=== PATIENT | female | born 1970 | race Caucasian/White ===

== ENCOUNTER 2017-07-06 05:35 | Inpatient (IN) | payer OTHER ==
[~2017-07-06] VITALS: Ht 170.2 cm; Wt 156.5 kg
--- NOTE | ~2017-07-06 | EKG ---
[address] [address] ELECTROCARDIOGRAM REPORT Name: SHERRIE VELAZQUEZ Parmjit Room #: 150-3 [facility]#: [id number] Admission: 07/06/17 Attend Phys: Don Dobson MD Discharge: Date of : 72 Report #: [id number] THIS REPORT FOR: //name// [facility] Test Date: 2017-07-06 Test Time: 06:44:54 Pat Name: SHERRIE VELAZQUEZ Department: Room: 150 3 Gender: F Material Carrier: ELIZABETH : 1970 Requested By: Dno Dobson Order Number: [id number] MD: Eliseo Vazquez Measurements Intervals [place] Rate: 67 P: 42 OK: 159 QRS: 42 QRSD: 157 T: 80 QT: 480 QTc: 507 Interpretive Statements Sinus rhythm Left bundle branch block Compared to ECG 11/10/2015 07:54:21 No significant changes Electronically Signed On 07-06-2017 9:06:23 STEVEDORING SUPERVISOR by Eliseo Vazquez [email or web address] <ELECTRONICALLY SIGNED> By: Eliseo Vazquez MD 07/06/1706 3 Eliseo Vazquez MD /MANJIT
--- NOTE | ~2017-07-06 | O ---
[facility] [place] [address] OPERATIVE REPORT Name: MARCUSSHERRIE Parmjit Room #: 408-P [facility] IN M.R.#: [id number] Admission: 07/06/17 Attend Phys: Don Dobson MD Discharge: Date of : 72 Report #: [id number] THIS REPORT FOR: //name// CC: Don TINOCORI EADOR DATE OF SERVICE: 07/06/2017 PREOPERATIVE DIAGNOSIS: Left knee prepatellar infected bursitis. POSTOPERATIVE DIAGNOSIS: Left knee prepatellar infected bursitis. PROCEDURE: Left knee prepatellar bursa irrigation and debridement. SURGEON: Don Dobson MD ANESTHESIA: General. ESTIMATED BLOOD LOSS: Minimal. ENGINE INSTALLER: Nory Moon. DRAINS: One Hemovac drain was placed. TOURNIQUET TIME: 10 minutes. DESCRIPTION OF PROCEDURE: The patient was brought to the operating room where she was placed under general anesthesia. Once under adequate general anesthesia, her left lower extremity was prepped and draped in a sterile manner. Extremity was elevated and tourniquet placed to 300 mmHg. An anterior incision over the prepatellar bursa was made approximately 4 cm in length in the bursal space and abundant thin purulent appearing fluid did come out of the bursa. Any fatty necrotic tissue was removed with suction as well as with irrigation. Cultures were taken prior to any short of irrigation. The wound was then irrigated copiously with normal saline solution and subsequently closed over a Hemovac drain with 2-0 nylon suture. The wound was dressed with Xeroform, 4 x 4s, and a sterile soft compressive dressing was placed. Tourniquet was let down at 10 minutes. Toes were pink and warm with good capillary refill. There were no complications from the procedure. The patient tolerated the procedure well and went to the recovery room without incident. <ELECTRONICALLY SIGNED> By: Don Dobson MD 07/09/17 0814 0823 0837 Don Dobson MD /nt
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
[~2017-07-06 05:35] MED LIST: AMBIEN 10 MG TA10 MG PO; BLACK COHOSH200 MG PO; BUSPIRONE HCL5 MG PO; DICLOFENAC SODI75 MG PO; EFFEXOR XR150 MG PO; FAMCICLOVIR250 MG PO; HYDROCHLOROTHIA25 M1 PO; LYRICA 75 MG CA75 MG PO; PERCOCET 7.5-31 EACH PO; POTASSIUM CL 225 MEQ PO; PRAVACHOL40 MG PO; PRILOSEC 20 MG20 MG PO; RANITIDINE HCL300 M1 PO; TOPROL XL100 MG PO; VASOTEC10 MG PO; VITAMIN D 5050000 I1 PO
[2017-07-06 07:25] LABS: HEMATOCRIT 33.3 % (37.0-47.0); HEMOGLOBIN 10.5 gm/dL (12.0-15.0)
[2017-07-06 07:35] LABS: CALCIUM 9.1 mg/dL (8.5-10.1); CREATININE 1.6 mg/dL (0.6-1.0); POTASSIUM 4.5 mmol/L (3.5-5.1)
[2017-07-06 07:52] VITALS: BP 142/84
[2017-07-06] MEDS ORDERED: ALLOPURINOL 10100 M1 PO (09:54)
[2017-07-06] MEDS ORDERED: METFORMIN HCL500 MG PO (09:55)
[2017-07-06] MEDS ORDERED: PROZAC20 MG PO (09:56)
[2017-07-06] MEDS ORDERED: REQUIP 1 MG TABL1 M1 PO (09:57)
[2017-07-06] MEDS ORDERED: HYDROXYZINE PAM25 M1 PO (09:58)
[2017-07-06] MEDS ORDERED: PERCOCET 7.5-31 EACH PO (10:01)
[2017-07-06 21:05] VITALS: BP 119/48
[2017-07-07 01:43] VITALS: BP 137/63
[2017-07-07 05:16] VITALS: BP 106/49
[2017-07-07 06:06] LABS: ABSOLUTE NEUTROPHILS 4.6 thou/uL (1.4-8.2); EOSINOPHILS 2.4 % (0.0-3.0); HEMATOCRIT 29.6 % (37.0-47.0); HEMOGLOBIN 9.5 gm/dL (12.0-15.0); LYMPHOCYTES 25.9 % (24.0-44.0); MCH 25.9 pg (26.0-34.0); MCHC 32.2 g/dL (28.0-37.0); MCV 80.4 fL (80.0-100.0); MONOCYTES 6.2 % (1.0-8.0); PLATELET COUNT 239 thou/uL (150-400); POLYS 64.5 % (36.0-66.0); RBC 3.68 mil/uL (4.20-5.00); RDW 17.3 % (10.5-14.5); WBC 7.1 thou/uL (4.0-11.0)
[2017-07-07 06:29] LABS: CALCIUM 8.5 mg/dL (8.5-10.1); CREATININE 1.6 mg/dL (0.6-1.0); POTASSIUM 4.1 mmol/L (3.5-5.1)
[2017-07-07 08:00] VITALS: BP 119/48
[2017-07-07 10:57] LABS: HEMATOCRIT 31.4 % (37.0-47.0); HEMOGLOBIN 10.3 gm/dL (12.0-15.0); MCH 26.1 pg (26.0-34.0); MCHC 32.7 g/dL (28.0-37.0); MCV 79.9 fL (80.0-100.0); RBC 3.93 mil/uL (4.20-5.00); RDW 17.4 % (10.5-14.5); WBC 7.5 thou/uL (4.0-11.0)
[2017-07-07 11:21] LABS: ALBUMIN 2.7 g/dL (3.4-5.0); CALCIUM 8.5 mg/dL (8.5-10.1); CREATININE 1.6 mg/dL (0.6-1.0); POTASSIUM 4.5 mmol/L (3.5-5.1); TOTAL BILIRUBIN 0.2 mg/dL (<0.1-1.0); TOTAL PROTEIN 6.8 g/dL (6.4-8.2)
[2017-07-07 16:05] VITALS: BP 132/68
[2017-07-07 20:56] VITALS: BP 132/57
[2017-07-08 03:50] VITALS: BP 132/58
[2017-07-08 06:12] LABS: HEMATOCRIT 30.5 % (37.0-47.0); HEMOGLOBIN 9.8 gm/dL (12.0-15.0); MCHC 32.1 g/dL (28.0-37.0); MCV 81.1 fL (80.0-100.0); RBC 3.77 mil/uL (4.20-5.00); RDW 17.4 % (10.5-14.5); WBC 6.6 thou/uL (4.0-11.0)
[2017-07-08 06:26] LABS: ALBUMIN 2.5 g/dL (3.4-5.0); CALCIUM 8.2 mg/dL (8.5-10.1); CREATININE 1.4 mg/dL (0.6-1.0); POTASSIUM 4.3 mmol/L (3.5-5.1); TOTAL BILIRUBIN 0.1 mg/dL (<0.1-1.0); TOTAL PROTEIN 6.3 g/dL (6.4-8.2)
[2017-07-08 08:00] VITALS: BP 147/76
[2017-07-08 16:00] VITALS: BP 147/56
[2017-07-08 20:54] VITALS: BP 152/82
[2017-07-09 04:00] VITALS: BP 131/67
[2017-07-09 05:50] LABS: HEMATOCRIT 30.2 % (37.0-47.0); MCH 26.3 pg (26.0-34.0); MCHC 33.1 g/dL (28.0-37.0); MCV 79.6 fL (80.0-100.0); RBC 3.79 mil/uL (4.20-5.00); RDW 17.2 % (10.5-14.5); WBC 7.4 thou/uL (4.0-11.0)
[2017-07-09 06:07] LABS: ALBUMIN 2.6 g/dL (3.4-5.0); CALCIUM 8.6 mg/dL (8.5-10.1); CREATININE 1.4 mg/dL (0.6-1.0); POTASSIUM 4.4 mmol/L (3.5-5.1); TOTAL BILIRUBIN 0.1 mg/dL (<0.1-1.0); TOTAL PROTEIN 6.6 g/dL (6.4-8.2)
[2017-07-09 08:00] VITALS: BP 162/91
[2017-07-09] MEDS ORDERED: PERCOCET 7.5-31 EACH PO (08:12)
[2017-07-09] MEDS ORDERED: ANCEF 1GM1 GM/50 M1 IVPB ×2 (13:27→13:32)
[2017-07-09 14:33] VITALS: BP 162/91
[2017-07-09 14:54] VITALS: BP 162/91
[2017-07-10 09:49] VITALS: BP 162/91
== END 2017-07-09 15:45 | disposition home health service (06) | DRG 500 ==
LOC: OR 05:35 → TBA 05:35 → 4N 14:34 → OR 14:34 → ENTRNSPT 07-09 15:37 → EDTRNSPTSTS 07-09 15:40 → 4N 07-09 15:45
PROVIDERS: Hospitalist; Orthopaedic Surgery Foot and Ankle Surgery
PROC: 0MBP0ZZ Excision of Left Knee Bursa and Ligament, Open Approach (ICD-10-PCS; principal; 2017-07-06)
DX: M71.162 Other infective bursitis, left knee (principal); E43 Unspecified severe protein-calorie malnutrition; N17.9 Acute kidney failure, unspecified; Z68.43 Body mass index [BMI] 50.0-59.9, adult; B95.61 Methicillin susceptible Staphylococcus aureus infection as the cause of diseases classified elsewhere; I10 Essential (primary) hypertension; F32.9 Major depressive disorder, single episode, unspecified; E11.9 Type 2 diabetes mellitus without complications; K21.9 Gastro-esophageal reflux disease without esophagitis; E78.00 Pure hypercholesterolemia, unspecified; E66.9 Obesity, unspecified; Z79.84 Long term (current) use of oral hypoglycemic drugs; Z90.49 Acquired absence of other specified parts of digestive tract; Z87.891 Personal history of nicotine dependence; Z90.710 Acquired absence of both cervix and uterus; Z86.718 Personal history of other venous thrombosis and embolism; Z98.1 Arthrodesis status; Z79.899 Other long term (current) drug therapy; Z91.048 Other nonmedicinal substance allergy status
CPT/HCPCS: 10790; 50010; 50101; 50386; 56525; 56527; 57091; 62110; 62900; 64031; 70005

== ENCOUNTER → 2020-03-04 | Outpatient (CLI) | payer BC, OTHER ==
[~2020-03-04] MED LIST changes: +ALLOPURINOL 10100 M1 PO; +ANCEF 1GM1 GM/50 M1 IVPB; +ASA81BEC PO; +CALCIUM CITRAT1 EA10 PO; +CYCLOBENZAPRINE10 MG PO; +HYDROXYCHLOROQ200 M1 PO; +HYDROXYZINE PAM25 M1 PO; -LYRICA 75 MG CA75 MG PO; +LYRICA225 MG PO; +METFORMIN HCL500 MG PO; +MULTIVITAMIN PO; +NASCOBAL1 EACH NASAL; +OMEPRAZOLE40 MG PO; +PREDNISOLONE ACE5 ML RT. EYE; +PROBIOT PO; +PROZAC20 MG PO; +REQUIP 1 MG TABL1 M1 PO; +SINGULAIR 10 MG10 M1 PO; +STOOL SOFTENER240 MG PO; +VENLAFAXINE HC150 M1 PO; +VENLAFAXINE HCL75 M2 PO
== END ==
LOC: LAB 12:20
PROVIDERS: ATTEND Orthopaedic Surgery Foot and Ankle Surgery
DX: Z01.812 Encounter for preprocedural laboratory examination (principal); Z20.828 Contact with and (suspected) exposure to other viral communicable diseases

== ENCOUNTER 2020-03-10 08:03 | Day surgery (SDC) | payer BC, OTHER ==
[~2020-03-10] VITALS: Ht 170.2 cm; Wt 129.3 kg
--- NOTE | ~2020-03-10 | O ---
[facility] [place] [address] OPERATIVE REPORT Name: SHERRIE VELAZQUEZ Room #: 150-3 [facility]..#: [id number] Admission: 03/10/20 Attend Phys: Don Dobson MD Discharge: Date of : 72 Report #: [id number] THIS REPORT FOR: cc: IZAIAH ZAMARRIPA Physician not on staff Don Dobson MD ~ CC: IZAIAH Dobson Physician staff DATE OF SERVICE: 03/10/2020 PREOPERATIVE DIAGNOSES: 1. Left ankle arthritis. 2. Left hindfoot retained hardware. POSTOPERATIVE DIAGNOSES: 1. Left ankle arthritis. 2. Left hindfoot retained hardware. PROCEDURE: 1. Left foot hardware removal. 2. Left tibiotalar calcaneal arthrodesis. SURGEON: Dr. Don Dobson. ACRYLIC FABRICATOR: None. ANESTHESIA: General. ESTIMATED BLOOD LOSS: Minimal. DRAINS: No drains. TOURNIQUET TIME: 105 minutes plus 30 minutes tourniquet time #2. COMPLICATIONS: There are no complications. DESCRIPTION OF PROCEDURE: The patient brought to the operating room where she was placed under general anesthesia. Once under adequate general anesthesia, her left lower extremity was prepped and draped in sterile manner. The extremity was elevated, exsanguinated, tourniquet placed to 300 mmHg. Dorsal incision on the patient's previous scar over the dorsum of the talus was made. This was dissected down through soft tissue to the dorsum of the talus and the tarsal navicular. The three 7.3 mm cannulated screws were identified under fluoroscopy and subsequently removed utilizing the cannulated screwdriver for [facility] [address] [place] [address] OPERATIVE REPORT Name: SHERRIE VELAZQUEZ Parmjit Room #: 150-3 [facility] M..#: [id number] Admission: 03/10/20 Attend Phys: Don Dobson MD Discharge: Date of : 72 Report #: [id number] the 7.3 screws after localizing the screw heads. Distally, the ____ guidewire was utilized to localize the four 4.5 mm screw heads across the talonavicular joint. Two separate stab incisions had to be made to remove two of the screws. These 4 screws were then removed utilizing fluoroscopy for guidance as well. A lateral incision then over the calcaneocuboid joint was made and dissection carried down to the plate and screws on that side. There were also two 4.5 mm cannulated screws, which were removed through 2 small separate stab incisions over a cannulated guidewire. The plate was identified and the 4 screws in the plate were then subsequently removed utilizing the hardware removal set. This completed the hardware removal portion of the procedure. A lateral incision over the distal fibula was then made approximately 10 cm in length. This was dissected down through the soft tissue to the lateral fibula, which was then subsequently completely exposed subperiosteally and a sagittal saw was then used to transect this along with a knife and a rongeur to remove the distal fibula completely. This bone was then ground down with a rongeur to cancellous bone chips. Removing the distal fibula did expose the tibiotalar joint. Once exposed, this was then debrided and denuded of any cartilage with osteotomes, curettes and a bur to get bleeding subchondral bone. We then proceeded with placing a guidewire through the plantar foot through the calcaneus through the talus and into the tibia. Subsequently, the opening reamer was utilized to open the distal tibia and the guidewire was placed down the shaft of the tibia. This was then reamed to 11.5 mm and a size 10 mm long Synthes tibiotalar calcaneal arthrodesis nail was placed. Subsequently, the posterior to anterior locking screws across the nail was then placed utilizing fluoroscopy and the jig for localization. Two 80 mm screws were placed across the fusion nail from the posterior heel. This was done through a separate 2 cm incision in the posterior heel. The jig was then rotated and the transverse locking screws were then placed through 2 separate stab incisions. Excellent fixation and alignment was achieved. Prior to placing the nail, however, it should be noted that we did use the bone chips from the fibula as well as Signafuse allograft for grafting across the arthrodesis site. Final fluoroscopic images were taken. The wounds were then irrigated copiously and closed with 2-0 Vicryl in the deep and subcutaneous tissues and maisha for the skin as well as 2-0 nylon at the plantar foot. The wounds were then dressed with Xeroform, 4 x 4s, and sterile soft compressive dressing was placed. Total tourniquet time was 130 minutes, split into one 95 minute and then a separate 35 minute after the tourniquet was down for over 30 minutes. The left lower extremity was placed into a short leg cast. Toes were pink and warm with good capillary refill. There were no complications from the procedure. The patient tolerated the procedure well and went to the recovery room without incident. By: [id number] [id number] Don Dobson MD /oneil
[~2020-03-10 08:03] MED LIST changes: -ASA81BEC PO
[2020-03-10 09:06] LABS: CALCIUM 8.7 mg/dL (8.5-10.1); CREATININE 0.9 mg/dL (0.6-1.0)
[2020-03-10 09:10] LABS: POTASSIUM 2.9 mmol/L (3.5-5.1)
[2020-03-10 09:35] VITALS: BP 149/97
--- NOTE | 2020-03-10 09:52 | EKG ---
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
[2020-03-10] MEDS ORDERED: ASA81BEC PO (13:07)
[2020-03-10 14:06] VITALS: BP 149/97
[2020-03-10 14:07] VITALS: BP 149/97
[2020-03-10 14:08] VITALS: BP 149/97
[2020-03-10 14:09] VITALS: BP 149/97
[2020-03-10 14:10] VITALS: BP 149/97
== END 2020-03-10 14:45 | disposition home or self-care (01) ==
LOC: OR 08:03 → TBA 08:03 → OR 09:16
PROVIDERS: ATTEND Orthopaedic Surgery Foot and Ankle Surgery
DX: M19.072 Primary osteoarthritis, left ankle and foot (principal); T84.84XA Pain due to internal orthopedic prosthetic devices, implants and grafts, initial encounter; I10 Essential (primary) hypertension; E78.00 Pure hypercholesterolemia, unspecified; M79.7 Fibromyalgia; F32.9 Major depressive disorder, single episode, unspecified; F41.9 Anxiety disorder, unspecified; G47.30 Sleep apnea, unspecified; K21.9 Gastro-esophageal reflux disease without esophagitis; Z98.890 Other specified postprocedural states; Z79.899 Other long term (current) drug therapy; Z87.891 Personal history of nicotine dependence; Z98.84 Bariatric surgery status; Z90.49 Acquired absence of other specified parts of digestive tract; Y82.8 Other medical devices associated with adverse incidents
CPT/HCPCS: 50010; 50101; 50133; 50386; 50951; 51412; 53341; 56524; 57091; 57169; 57180; 57485; 57861; 58289; 62110; 62900; 64039; 70005